=== PATIENT | male | born 1970 | race Caucasian/White ===

== ENCOUNTER → 2020-03-01 | Outpatient (CLI) | payer OTHER ==
--- NOTE | 2020-03-01 15:09 | CONS ---
CONSULTATION DATE OF SERVICE: 03/01/2020 A 49-year-old gentleman evaluated in the Sleep Center for possible obstructive sleep apnea-hypopnea syndrome. HISTORY OF PRESENT ILLNESS/SLEEP-WAKE EVALUATION: Patient's usual sleep schedule from 11 p.m. to 8:30 a.m. Usually no problems with falling asleep. No TV in bedroom. The patient sleeps by himself. According to his family, he has extremely loud snoring and witnessed episodes of stopped breathing during the sleep. His mother counted up to 40 seconds when he stops breathing during the sleep. During the day, he usually does not take naps. [place] Sleepiness Scale is 3. At night, he sleeps actually reclining. PAST MEDICAL HISTORY: Positive for hypertension, diabetes, or stroke, happened with blurry vision and memory problems. Now this function normalized. PAST SURGICAL HISTORY: None. MEDICATIONS: Metoprolol, atorvastatin, baby aspirin, metformin, Plavix and . SOCIAL HISTORY: Negative for smoking or using alcohol. FAMILY HISTORY: Positive for pneumonia, emphysema and heart problems by his grandmother. Thyroid problem, headaches by his mother. REVIEW OF SYSTEMS: Sometimes tiredness during the day. PHYSICAL EXAM: gentleman without distress, BP 134/80, HR 64, RR 16, height 6, 0, weight 227, BMI 30.7, temperature 99.1, oxygen saturation at room air 98%. OROPHARYNX: Extremely low position of soft palate. Mallampati 4. Neck is wide, 17 - 1/2 inches in circumference. LUNGS: Clear to percussion and to auscultation. Good air exchange. No wheezing or rhonchi. HEART: S1, S2 regular. No murmurs, gallops, or rubs. ABDOMEN: Soft and nontender. Bowel sounds are present. No organomegaly appreciated. EXTREMITIES: No clubbing or cyanosis. SAMPLE MAKER ORIGINAL: Awake, alert, and oriented X3. Cranial nerves 2 to 7 intact. There is no fasciculation or atrophy. noted. No focal deficits observed. IMPRESSION: 1. Loud snoring, witnessed episodes of stopped breathing during sleep, extremely low position of soft palate, wide neck, obstructive sleep apnea-hypopnea syndrome. 2. Hypertension. 3. History of stroke. 4. Diabetes mellitus. PLAN: 1. Polysomnography for evaluation of patient's breathing during sleep. 2. CPAP/BiPAP titration if sleep study confirms obstructive sleep apnea-hypopnea syndrome. 3. Preferable position during sleep on the side. 4. No driving if patient feels any sleepiness. 5. I will see patient for follow up visit to explain results of testing and following plan. 6. Mild obesity BMI 30.7. Thank you very much for allowing me to participate in management of your patient. Sincerely, Darrick Gauthier MD, PhD, FAASM Diplomat of [employer] [place] Board of [employer] Medicine Religious Educator of [facility] [place] MMODL / IJN: [id number] /
== END | disposition home or self-care (01) ==
LOC: SLEEP 13:31
PROVIDERS: ATTEND Internal Medicine
DX: G47.33 Obstructive sleep apnea (adult) (pediatric) (principal); I10 Essential (primary) hypertension; E11.9 Type 2 diabetes mellitus without complications; Z86.73 Personal history of transient ischemic attack (TIA), and cerebral infarction without residual deficits
CPT/HCPCS: 99211

== ENCOUNTER → 2020-07-12 | Outpatient (CLI) | payer OTHER ==
--- NOTE | 2020-07-13 02:58 | SFUN ---
SLEEP CENTER FOLLOW UP NOTE DATE OF SERVICE: 07/12/2020 This 49-year-old gentleman who has been followed in Sleep Center for treatment of obstructive sleep apnea-hypopnea syndrome. Recently patient had polysomnogram which showed extremely severe obstructive sleep apnea-hypopnea syndrome with apnea-hypopnea index 77.5 and severe oxygen desaturation to 48%. Subsequently, patient had CPAP/BiPAP titration and received his BiPAP machine. This is his first visit after he started to use BiPAP equipment. The patient is using equipment every night and feels better while he is using BiPAP. Sleeps in bed and feels better during the day. [place] Sleepiness Scale today is zero. I checked his BiPAP unit. BiPAP pressure is 20/16 cm of water. Usage is 30 out of 30 nights and 20 out of 30 nights for more than 4 hours with average usage 5.9 hours per night. Leak is 24 L/minute. Apnea-hypopnea index 23.2, and apnea index is 16.9. MEDICATIONS: Metoprolol, atorvastatin, metformin, aspirin, Plavix. PHYSICAL EXAMINATION: GENERAL: Patient in no distress. VITAL SIGNS: BP 137/87, HR 78, RR 15, weight 234, temperature 97.3, oxygen saturation normal at 98%. HEENT: PERRLA, EOMI. Evaluation of oropharynx small oropharynx. NECK: Supple, no JVD. Thyroid is not palpable. LUNGS: Clear to percussion and to auscultation. Good air exchange. No wheezing or rhonchi. HEART: S1, S2 regular. No murmurs, gallops, or rubs. ABDOMEN: Soft and nontender. Bowel sounds are present. No organomegaly appreciated. EXTREMITIES: No clubbing or cyanosis. PRESCHOOL SUBSTITUTE TEACHER: Awake, alert, and oriented X3. Cranial nerves 2 to 7 intact. There is no fasciculation or atrophy. noted. No focal deficits observed. IMPRESSION: 1. Extremely severe obstructive sleep apnea-hypopnea syndrome; apnea-hypopnea index 77.5 with extremely severe oxygen desaturation to 48%, improved on BiPAP. The patient demonstrated good compliance with treatment, benefitting from treatment. Apnea-hypopnea index reading from the machine still above normal range. 2. History of stroke. 3. Hypertension. 4. Diabetes mellitus. PLAN: 1. I increased BiPAP pressure to 22/18 cm of water. 2. Patient will continue to use PAP equipment every night for the whole night. 3. Sleep hygiene with regular time in bed for at least 7-1/2 to 8 hours. 4. Precautions related to driving. No driving if feeling sleepiness. 5. I will maintain all necessary prescription for PAP supplies including mask, tube, filters. 6. Watching weight. 7. No driving if feeling sleepiness. 8. Follow-up visit in one month or earlier if patient has any discomfort related to the pressure. The patient was explained that if he had any discomfort related to the pressure he should contact office immediately. Thank you very much for allowing me to participate in management of your patient. Sincerely, Darrick Gauthier MD, PhD, FAASM Diplomat of [employer] Specialties [employer] Board of Internal Medicine Offset Plate Maker of [facility] [place] JOHN / KEILAN: [id number] /
== END | disposition home or self-care (01) ==
LOC: SLEEP 15:44
PROVIDERS: ATTEND Internal Medicine
DX: G47.33 Obstructive sleep apnea (adult) (pediatric) (principal); Z86.73 Personal history of transient ischemic attack (TIA), and cerebral infarction without residual deficits; I10 Essential (primary) hypertension; E11.9 Type 2 diabetes mellitus without complications; Z99.89 Dependence on other enabling machines and devices; Z79.82 Long term (current) use of aspirin; Z79.84 Long term (current) use of oral hypoglycemic drugs; Z79.899 Other long term (current) drug therapy

== ENCOUNTER → 2020-08-29 | Outpatient (CLI) | payer OTHER ==
--- NOTE | 2020-08-29 20:59 | SFUN ---
SLEEP CENTER FOLLOW UP NOTE DATE OF SERVICE: 08/29/2020 This is a 49-year-old gentleman who has been followed in Sleep Center for treatment of obstructive sleep apnea-hypopnea syndrome. During his previous visit in July 2020, his apnea-hypopnea index was in the high range; reading from the machine was 23.2. I increased pressure in his BiPAP unit to 22/18 cm of water. Patient continues to use his CPAP equipment every night but feels that the leak is more than before. [place] Sleepiness Scale today is 8. I checked the patient's BiPAP unit. Pressure is 22/18. Usage is 30/30 nights, and 20/30 nights for more than 4 hours. Average usage 5.5 hours per night. Very high leak at 72 L/minute. Apnea-hypopnea index is 14.6, which is less than during his previous visit with about 10 events per hour. MEDICATIONS: 1. Aspirin 81 mg once a day. 2. Metoprolol 100 mg once a day. 3. Atorvastatin 40 mg once a day. 4. Metformin 500 mg twice a day. 5. Entresto 97-103 mg twice a day. 6. Plavix 75 mg once a day. 7. Victoza 0.6 mg once a day. PHYSICAL EXAMINATION: GENERAL: A pleasant patient in no distress. VITAL SIGNS: BP 136/91, HR 74, RR 15, height 6 feet, weight 236.6 pounds, BMI 32, temperature 97.7, oxygen saturation at room air 98%. HEENT: PERRLA, EOMI. Evaluation of oropharynx showed tongue protrudes midline. Small oropharynx. NECK: Supple. No JVD. Thyroid is not palpable. LUNGS: Clear to percussion and to auscultation. Good air exchange. No wheezing or rhonchi. HEART: S1, S2 regular. No murmurs, gallops or rubs. ABDOMEN: Soft and nontender. Bowel sounds are present. No organomegaly appreciated. EXTREMITIES: No clubbing or cyanosis. TELEPHONE ORDER CLERK: Awake, alert, and oriented X3. Cranial nerves 2 to 7 intact. There is no fasciculation or atrophy. noted. No focal deficits observed. IMPRESSION: 1. Obstructive sleep apnea-hypopnea syndrome. Patient demonstrated good compliance with treatment. Respiration improved on BiPAP compared to the previous visit, but still above the best range. 2. History of stroke. 3. Hypertension. 4. Diabetes mellitus. PLAN: 1. Patient will continue to use BiPAP equipment with the same pressure. 2. We fit the patient with a different style of full-face mask with a goal to decrease leak and consequently improve his respiration. 3. Watching weight. 4. No driving if feeling any sleepiness. 5. Follow-up visit in 3 months. Thank you very much for allowing me to participate in the management of your patient. Sincerely, Darrick Gauthier MD, PhD, FAASM Diplomat of [employer] Board [employer] Medical Specialties English Board of Internal Medicine Cloth Sander of [facility] [place] MMODL / IJN: [id number] /
== END | disposition home or self-care (01) ==
LOC: SLEEP 16:20
PROVIDERS: ATTEND Internal Medicine
DX: G47.33 Obstructive sleep apnea (adult) (pediatric) (principal); Z86.73 Personal history of transient ischemic attack (TIA), and cerebral infarction without residual deficits; I10 Essential (primary) hypertension; E11.9 Type 2 diabetes mellitus without complications; Z79.82 Long term (current) use of aspirin; Z79.899 Other long term (current) drug therapy; Z99.89 Dependence on other enabling machines and devices

== ENCOUNTER → 2020-09-18 | Outpatient (CLI) | payer OTHER ==
[2020-09-18 15:51] LABS: Basophils # (A) 0.05 X 10*3/uL (0.00-0.10); Basophils % (A) 0.6 %; Eosinophils # (A) 0.15 X 10*3/uL (0.04-0.35); Eosinophils % (A) 1.8 %; HCT 45.3 % (39.6-50.0); HGB 14.6 g/dL (13.0-17.0); Lymphocytes % (A) 20.7 %; MCHC 32.2 g/dL (32.0-37.0); MCV 93.2 fL (80.0-97.0); Mean Platelet Volume 10.8 fL (9.5-12.2); Monocytes % (A) 6.1 %; Neutrophils # (A) 5.76 X 10*3/uL (1.80-7.70); Neutrophils % (A) 70.1 %; Platelet Count 260 X 10*3/uL (140-440); RBC 4.86 X 10*6/uL (4.40-5.60); WBC 8.22 X 10*3/uL (4.50-10.00)
[2020-09-18 15:56] LABS: Albumin 4.8 g/dL (3.80-4.90); Albumin/Globulin Ratio 2.82 (1.60-3.17); Anion Gap 6.7 mmol/L (4.00-12.00); Calcium 9.5 mg/dL (8.7-10.3); Carbon Dioxide 28.3 mmol/L (21.6-31.8); Chol/HDL Ratio 5.42; Globulin 1.7 g/dL (1.6-3.3); Potassium 4.4 mmol/L (3.5-5.5); Total Bilirubin 1.7 mg/dL (0.2-1.2); Total Protein 6.5 g/dL (6.2-8.2)
[2020-09-18 17:11] LABS: Hemoglobin A1C 7.8 % (4.0-6.0)
== END | disposition home or self-care (01) ==
LOC: LABWHC1 08:35
PROVIDERS: ATTEND Internal Medicine
DX: E78.5 Hyperlipidemia, unspecified (principal); E11.9 Type 2 diabetes mellitus without complications; E66.9 Obesity, unspecified; I50.9 Heart failure, unspecified
CPT/HCPCS: 36415; 80053; 80061; 83036; 83721; 85025

== ENCOUNTER → 2020-12-27 | Outpatient (CLI) | payer OTHER ==
--- NOTE | 2020-12-28 04:15 | SFUN ---
SLEEP CENTER FOLLOW UP NOTE DATE OF SERVICE: 12/27/2020 50-year-old gentleman has been followed in Sleep Center for treatment of obstructive sleep apnea-hypopnea syndrome. The patient continues to use BiPAP equipment every night for the whole night and according to him and family, he sleeps pretty well with the machine, feel okay during the day. [place] Sleepiness Scale is 0. During previous visit, it was documented very high leak 72 L/minute, and we changed the type of the patient mask to a different one, fullface mask. He feels well with the new mask. I checked his BiPAP unit. Pressure is 20-18 cm of water. Usage is 29 out of 30 nights and 22 out of 30 nights for more than 4 hours. Leak at the present time, 28 L/minute. Apnea-hypopnea index 13.7, which includes central 1.4 times per hour. During previous visit, apnea-hypopnea index was 14.6. MEDICATIONS: Aspirin 81 mg once a day, metoprolol 100 mg once a day, rosuvastatin 20 mg once a day, metformin 500 mg twice a day and Entresto 97-103 mg twice a day, Plavix 75 mg once a day, Victoza 1.2 mg once a day. PHYSICAL EXAMINATION: GENERAL: Patient in no distress. BP 124/81, HR 71, RR 15, height 6 feet 1 inch, weight 237.0 pounds which is about the same as during last visit. BMI 31.3, temperature 97.9 oxygen saturation at room air 97%. HEENT: PERRLA, EOMI. Oropharynx small oropharyngeal air space. NECK: Supple, no JVD. Thyroid is not palpable. LUNGS: Clear to percussion and to auscultation. Good air exchange. No wheezing or rhonchi. HEART: S1, S2 regular. No murmurs, gallops, or rubs. ABDOMEN: Slightly obese. Soft and nontender. Bowel sounds are present. No organomegaly appreciated. EXTREMITIES: No clubbing or cyanosis. RIP AND GROOVE MACHINE OPERATOR: Awake, alert, and oriented X3. Cranial nerves 2 to 7 intact. There is no fasciculation or atrophy. noted. No focal deficits observed. IMPRESSION: 1. Extremely severe obstructive sleep apnea-hypopnea syndrome. Apnea-hypopnea index during diagnostic sleep study 77.5. The patient demonstrated great compliance with treatment benefitting from treatment. Apnea-hypopnea index improved after changing mask but still in mild range above normal. 2. History of stroke. 3. Hypertension. 4. Diabetes mellitus. PLAN: 1. I changed regimen on the BiPAP machine to automatic with maximal inspiratory pressure 23, minimal expiratory pressure 13, pressure support 4. 2. Sleep hygiene with regular time in bed for at least 7-1/2 to 8 hours. 3. Precautions related to driving. No driving if feeling sleepiness. 4. I will maintain all necessary prescription for PAP supplies including mask, tube, filters. 5. Watching weight. 6. Follow-up visit in 3-4 months or earlier if patient has any problems. Thank you very much for allowing me to participate in management of your patient. Sincerely, Darrick Gauthier MD, PhD, FAASM Diplomat of [employer] Board of Medical Specialties Polish Board of Internal Medicine Joint Special Operations of [facility] [place] MMODL / KEILAN: [id number] /
== END ==
LOC: SLEEP 13:19
PROVIDERS: ATTEND Internal Medicine
DX: G47.33 Obstructive sleep apnea (adult) (pediatric) (principal); I10 Essential (primary) hypertension; E11.9 Type 2 diabetes mellitus without complications; Z86.73 Personal history of transient ischemic attack (TIA), and cerebral infarction without residual deficits; Z79.84 Long term (current) use of oral hypoglycemic drugs; Z79.899 Other long term (current) drug therapy

== ENCOUNTER → 2021-05-02 | Outpatient (CLI) | payer OTHER ==
--- NOTE | 2021-05-02 21:21 | SFUN ---
SLEEP CENTER FOLLOW UP NOTE DATE OF SERVICE: 05/02/2021 50-year-old gentleman has been followed in Sleep Center for treatment of obstructive sleep apnea-hypopnea syndrome. The patient continues to use his BiPAP equipment every night according to patient and family. Sleeps well with the machine. During 2 previous visits, his apnea-hypopnea index was increased into 30.7 and last visit was 14.6 and it was documented very high leak 72 L/minute. During the last visit, I changed the pressure in the machine to maximal pressure 23, minimal expiratory pressure of 13 with a pressure support of 4. [place] Sleepiness Scale today is 2 only. I checked BiPAP unit. Maximal inspiratory pressure 23, minimal expiratory pressure 13, pressure support 4. Usage is 24/30 nights. Average 5.2 hours per night. Leak is 16 L/minute. Apnea-hypopnea index 8.1, which is still slightly above normal range, but significant improvement comparing with the previous visit. MEDICATIONS: Aspirin 81 mg once a day, metoprolol 100 mg once a day, metformin 1000 mg twice a day, 97-103 mg twice a day, Plavix 75 mg once a day, Victoza 1.2 mg once a day, Rosuvastatin 20 mg once a day. PHYSICAL EXAMINATION: GENERAL: Patient in no distress. BP 129/77, HR 70, RR 15, height 6 feet 1 inch, weight 230.6, body mass index 30.3. The patient lost 7 pounds since the previous visit. Temperature 96.8, oxygen saturation 100%. Oropharynx: Small oropharyngeal air space. NECK: Supple, no JVD. Thyroid is not palpable. LUNGS: Clear to percussion and to auscultation. Good air exchange. No wheezing or rhonchi. HEART: S1, S2 regular. No murmurs, gallops, or rubs. ABDOMEN: Soft and nontender. Bowel sounds are present. No organomegaly appreciated. EXTREMITIES: No clubbing or cyanosis. WINDOW UNIT AIR CONDITIONING MECHANIC: Awake, alert, and oriented X3. Cranial nerves 2 to 7 intact. There is no fasciculation or atrophy. noted. No focal deficits observed. IMPRESSION: 1. Severe obstructive sleep apnea-hypopnea syndrome. Original apnea-hypopnea index 77.5. The patient demonstrated borderline compliance with treatment benefitting from treatment, improvements of the patient respiration. A total apnea-hypopnea index 8.1, after pressure in the machine was adjusted during the last visit. During previous visit, apnea-hypopnea index was in the range of 14. 2. History of stroke. 3. Hypertension. 4. Diabetes mellitus. PLAN: 1. Patient will continue to use PAP equipment every night for the whole night. 2. Sleep hygiene with regular time in bed for at least 7-1/2 to 8 hours. 3. Precautions related to driving. No driving if feeling sleepiness. 4. I will maintain all necessary prescription for PAP supplies including mask, tube, filters. 5. Watching weight. 6. Follow-up visit in 6 months or earlier if patient has any problems. 7. If patient wakes up in the middle of the night, he should not take mask off, just disconnect the tube from the mask and then connect tube back after he will return to bed after the restroom. Darrick Gauthier MD, PhD, FAASM Diplomat of [place] Board of [employer] Specialties Sleep Medicine Board of [place] Board of Internal Medicine Skin Lap Bonder of [facility] [place] MMODL / KEILAN: [id number] /
== END | disposition home or self-care (01) ==
LOC: SLEEP 13:47
PROVIDERS: ATTEND Internal Medicine
DX: G47.33 Obstructive sleep apnea (adult) (pediatric) (principal); I10 Essential (primary) hypertension; E11.9 Type 2 diabetes mellitus without complications; Z86.73 Personal history of transient ischemic attack (TIA), and cerebral infarction without residual deficits

== ENCOUNTER → 2021-05-22 | Outpatient (CLI) | payer OTHER ==
--- NOTE | 2021-05-22 19:27 | US ---
EXAMINATION TYPE: US thyroid st tissue head/neck DATE OF EXAM: 05/22/2021 COMPARISON: NONE CLINICAL HISTORY: E04.1 Nontoxic single thyroid nodule. Family hx of thyroid cancer GLAND SIZE: Right Lobe: 4.9 x 1.5 x 2.3 cm Overall Parenchyma: homogenous Left Lobe: 4.9 x 1.7 x 1.6 cm Overall Parenchyma: homogeneous Isthmus Thickness: 0.4 cm NODULES RIGHT: # of nodules measured on right: 0 LEFT: # of nodules measured on left: 0 ISTHMUS: # of nodules measured in the isthmus: 0 Bilateral neck scanned, no evidence of lymphadenopathy. Fairly homogeneous normal-size thyroid gland without worrisome nodule. IMPRESSION: As above.
== END | disposition home or self-care (01) ==
LOC: RADUSWWP 16:53
PROVIDERS: ATTEND Internal Medicine Hospice and Palliative Medicine
DX: E04.1 Nontoxic single thyroid nodule (principal)
CPT/HCPCS: 76536

== ENCOUNTER → 2021-08-01 | Outpatient (CLI) | payer OTHER ==
[2021-08-01 22:24] LABS: Chol/HDL Ratio 3.85 Ratio; LDL Cholesterol,Calculated 29.9 mg/dL (0.0-131.0)
== END | disposition home or self-care (01) ==
LOC: LABWHC1 11:43
PROVIDERS: ATTEND Internal Medicine
DX: I25.10 Atherosclerotic heart disease of native coronary artery without angina pectoris (principal); I11.9 Hypertensive heart disease without heart failure; E78.5 Hyperlipidemia, unspecified; Q21.1 Atrial septal defect; E11.9 Type 2 diabetes mellitus without complications; Z98.61 Coronary angioplasty status; Z86.79 Personal history of other diseases of the circulatory system
CPT/HCPCS: 36415; 80061

== ENCOUNTER → 2021-10-30 | Outpatient (CLI) | payer OTHER ==
--- NOTE | 2021-10-30 18:24 | SFUN ---
SLEEP CENTER FOLLOW UP NOTE DATE OF SERVICE: 10/30/2021. 51-year-old gentleman has been followed in Sleep Center for treatment of obstructive sleep apnea-hypopnea syndrome. Patient continues to use his BiPAP equipment every night, getting his supplies in time. During the previous visit, his apnea-hypopnea index was increased secondary to leak. Presently no complaints on any leak. I checked his BiPAP unit. Maximal inspiratory pressure 23, minimal expiratory pressure 13, average pressure 22/18. Usage is 30/30 nights and 20/30 nights more than 4 hours, average 7 hours per night. Leak is 34 L/minute which is significant improvement comparing with the previous visit, apnea-hypopnea index is 5.0, which is on the border to normal and showed improvements, previous apnea-hypopnea index was 8.1. MEDICATIONS: Aspirin 81 mg once a day, metoprolol 100 mg once a day, metformin 1000 mg twice a day, Plavix 75 mg once a day, Victoza 1.2 mg once a day also, lovastatin 20 mg once a day. PHYSICAL EXAMINATION: GENERAL: Patient in no distress. BP 115/72, HR 60, RR 16 height 6 feet 1 inch, weight 232.2 pounds, temperature 98.0. Oxygen saturation at room air 91%. Oropharynx: Small oropharyngeal air space. NECK: Supple, no JVD. Thyroid is not palpable. LUNGS: Clear to percussion and to auscultation. Good air exchange. No wheezing or rhonchi. HEART: S1, S2 regular. No murmurs, gallops, or rubs. ABDOMEN: Soft and nontender. Bowel sounds are present. No organomegaly appreciated. EXTREMITIES: No clubbing or cyanosis. ART LIBRARIAN: Awake, alert, and oriented X3. Cranial nerves 2 to 7 intact. There is no fasciculation or atrophy. noted. No focal deficits observed. IMPRESSION: 1. Severe obstructive sleep apnea-hypopnea syndrome. Original apnea-hypopnea index 77.5. The patient demonstrated great compliance with treatment. The patient's respiration practically normalized, presently Apnea-hypopnea index 5.0 after corrections which was done on the several previous visits. 2. History of stroke. 3. Hypertension. 4. Diabetes mellitus. PLAN: 1. Patient will continue to use PAP equipment every night for the whole night. 2. Sleep hygiene with regular time in bed for at least 7-1/2 to 8 hours. 3. Precautions related to driving. No driving if feeling sleepiness. 4. I will maintain all necessary prescription for PAP supplies including mask, tube, filters. 5. Watching weight. 6. Follow-up visit in 6 months or earlier if patient has any problems. Thank you very much for allowing me to participate in management of your patient. Sincerely, Darrick Gauthier MD, PhD, FAASM Diplomat of [place] [employer] Specialties Sleep Medicine Board of [place] Board of Internal Medicine Bobbin Handler of [facility] [place] MMODL / KEILAN: [id number] /
== END | disposition home or self-care (01) ==
LOC: SLEEP 13:08
PROVIDERS: ATTEND Internal Medicine
DX: G47.33 Obstructive sleep apnea (adult) (pediatric) (principal); I10 Essential (primary) hypertension; E11.9 Type 2 diabetes mellitus without complications; Z86.73 Personal history of transient ischemic attack (TIA), and cerebral infarction without residual deficits

== ENCOUNTER → 2022-05-14 | Outpatient (CLI) | payer OTHER ==
--- NOTE | 2022-05-14 12:35 | P.PN ---
Subjective DATE: 05/14/2022 FOLLOW UP VISIT. Patient with obstructive sleep apnea hypopnea syndrome return to sleep center for follow-up visit. Information from previous visit have been reviewed. Patient is using PAP equipment every night for the whole night, getting PAP supplies in time. The patient does not have significant problems with the mask, PAP unit and humidification. [place] sleepiness scale is 0, which is perfect. I checked information from PAP unit. PAP unit pressure maximal inspiratory pressure 23, minimal expiratory pressure 13, average pressure 20 2. 6/18 0.6 cm H2O. Usage is 90 % for more then 4 hours, average 7.1 hours per night. Leak is 7 l/m, which is in acceptable range. Apnea Hypopnea Index is increased to 10.9, during previous visit it was 5.0, on the visit before that it was 8.1. MEDICATIONS:1. Aspirin 81 mg once a day 2. Metoprolol 100 mg once a day 3. Metformin 1000 mg twice a day 4. Plavix 75 mg once a day 5. Rosuvastatin 20 mg once a day 6. Fenofibrate 14 mg once a day During physical exam: GENERAL: A pleasant patient without any distress. VITAL SIGNS: BP 153/90, HR 67, RR 14 , weight 237.2, temperature 97.2, oxygen saturation at room air 98 % . HEENT: PERRLA, EOMI. . NECK: Supple. No JVD. LUNGS: Clear to percussion and to auscultation. Good air exchange. No wheezing or rhonchi. HEART: S1, S2 regular. ABDOMEN: Soft and nontender. Slightly obese EXTREMITIES: No clubbing or cyanosis. COSMETIC CONSULTANT: Awake, alert, and oriented x3. No focal deficit. Impressions: 1. Severe obstructive sleep apnea hypopnea syndrome, apnea-hypopnea index during diagnostic sleep study 77.5. Patient demonstrated great compliance with treatment, benefiting from treatment. Apnea-hypopnea index slightly increased. 2. History of stroke. 3. Hypertension. 4. Diabetes mellitus. Plan: 1. Continue using PAP equipment every night for the whole night. I changed pressure to maximal inspiratory pressure 24 cm of water. 2. To change air filter at least 1-2 times per month. 3. PAP unit should stay lower then position of the head. 4. Advised patient to remove all remaining water from humidifier canister daily and make it dry after each usage. Refill canister with fresh distilled water before each usage. 5. Sleep hygiene with regular time in bed for at least 8 hours. 6. Precautions related to driving. No driving if feel any sleepiness. 7. I will maintain prescription for PAP supplies including mask, tube, filters. 8. Follow up visit in 6 months or earlier if patient has any problems. 9. Watching weight. Thank you very much for allowing me to participate in the management of your patient. Darrick Gauthier MD, PhD, FAASM. Diplomat of [place] [employer] Medicine, Sleep Medicine Board by [place] Board of [employer] Medicine It Security Architect of [facility] [place]
== END ==
LOC: SLEEP 11:40
PROVIDERS: ATTEND Internal Medicine
DX: G47.33 Obstructive sleep apnea (adult) (pediatric) (principal); E66.9 Obesity, unspecified; Z86.73 Personal history of transient ischemic attack (TIA), and cerebral infarction without residual deficits; I10 Essential (primary) hypertension; E11.9 Type 2 diabetes mellitus without complications; Z99.89 Dependence on other enabling machines and devices
CPT/HCPCS: 99212

== ENCOUNTER → 2022-05-27 | Outpatient (CLI) | payer OTHER ==
[2022-05-27 15:54] LABS: Chol/HDL Ratio 5.15 Ratio; LDL Cholesterol,Calculated 62.8 mg/dL (0.0-131.0)
== END | disposition home or self-care (01) ==
LOC: LABWHC1 10:26
PROVIDERS: ATTEND Internal Medicine Cardiovascular Disease
DX: I11.9 Hypertensive heart disease without heart failure (principal); I25.10 Atherosclerotic heart disease of native coronary artery without angina pectoris; E78.5 Hyperlipidemia, unspecified; Z86.73 Personal history of transient ischemic attack (TIA), and cerebral infarction without residual deficits; Z98.61 Coronary angioplasty status; Z86.79 Personal history of other diseases of the circulatory system
CPT/HCPCS: 36415; 80061

== ENCOUNTER → 2022-11-26 | Outpatient (CLI) | payer OTHER ==
--- NOTE | 2022-11-26 11:13 | P.PN ---
Subjective DATE: 11/26/2022 FOLLOW UP VISIT. Patient with obstructive sleep apnea hypopnea syndrome return to sleep center for follow-up visit. Information from previous visit have been reviewed. Patient is using PAP equipment every night for the whole night, getting PAP supplies in time. The patient does not have significant problems with the mask, PAP unit and humidification. [place] sleepiness scale is 0, which is perfect. I checked information from PAP unit and explaining to the patient in details. BPAP unit pressure is maximal inspiratory pressure 24, minimal expiratory pressure 13, pressure-support 4 cm H2O. Usage is 100% and 90 % for more then 4 hours, average 6.5 hours per night. Leak is high 50.0 l/m average for the last months, after changing mask to the new one recently leak reduced to normal . Apnea Hypopnea Index is 2.7 for last night and 4.4 for the last months, which is normal. MEDICATIONS:1. Aspirin 81 mg once a day 2. Metoprolol 100 mg once a day 3. Metformin 1000 mg twice a day 4. Plavix 75 mg once a day 5. Fenofibrate 14 mg once a day 6. Rosuvastatin 20 mg once a day 7 Entresto twice a day During physical exam: GENERAL: A pleasant patient without any distress. VITAL SIGNS: BP 113/72, HR 62, RR 12 , weight 226, temperature 98.0, oxygen saturation at room air 97 % . HEENT: PERRLA, EOMI . NECK: Supple. No JVD. LUNGS: Clear to percussion and to auscultation. Good air exchange. No wheezing or rhonchi. HEART: S1, S2 regular. ABDOMEN: Soft and nontender.[] EXTREMITIES: No clubbing or cyanosis. DEGREASER OPERATOR: Awake, alert, and oriented x3. No focal deficit. Impressions: 1. Obstructive sleep apnea-hypopnea syndrome. Patient demonstrated great compliance with treatment, benefiting from treatment. Normal apnea-hypopnea index on BiPAP after pressure was changing the previous visit. 2. History of obesity, patient lost 11 pounds, presently body mass index reduced to 29.8. 3. Diabetes mellitus, recent hemoglobin A1c according to patient 6.0. 4. Hypertension. 5. History of stroke. Plan: 1. Continue using PAP equipment every night for the whole night. 2. To change air filter at least 1-2 times per month. 3. PAP unit should stay lower then position of the head. 4. Advised patient to remove all remaining water from humidifier canister daily and make it dry after each usage. Refill canister with fresh distilled water before each usage. 5. Sleep hygiene with regular time in bed for at least 8 hours. 6. Precautions related to driving. No driving if feel any sleepiness. 7. I will maintain prescription for PAP supplies including mask, tube, filters. 8. Watching weight. 9. Follow up visit in 6 months or earlier if patient has any problems. Thank you very much for allowing me to participate in the management of your patient. Darrick Gauthier MD, PhD, FAASM. Diplomat of [place] [employer], Sleep Medicine Board by [place] [employer] Teacher of [facility] [place]
== END ==
LOC: SLEEP 10:42
PROVIDERS: ATTEND Internal Medicine
DX: G47.33 Obstructive sleep apnea (adult) (pediatric) (principal); E11.9 Type 2 diabetes mellitus without complications; E66.9 Obesity, unspecified; I10 Essential (primary) hypertension; Z79.84 Long term (current) use of oral hypoglycemic drugs; Z79.899 Other long term (current) drug therapy; Z86.73 Personal history of transient ischemic attack (TIA), and cerebral infarction without residual deficits; Z99.89 Dependence on other enabling machines and devices; Z68.29 Body mass index [BMI] 29.0-29.9, adult; Z79.82 Long term (current) use of aspirin
CPT/HCPCS: 99212

== ENCOUNTER → 2023-04-15 | Outpatient (CLI) | payer OTHER ==
--- NOTE | 2023-04-15 09:39 | US ---
EXAMINATION TYPE: US kidneys/renal and bladder DATE OF EXAM: 04/15/2023 COMPARISON: NONE CLINICAL INDICATION: Male, 52 years old with history of N18.1 CHRONIC KIDNEY DISEASE, STAGE 1; EXAM MEASUREMENTS: Right Kidney: 12.4 x 5.7 x 6.0 cm Left Kidney: 12.6 x 5.7 x 4.8 cm Right Kidney: Upper hydronephrosis with shadowing stone noted at the hilum measuring 1.7 cm; addition al shadowing stone with twinkle artifact noted laterally measuring 1.2 cm Left Kidney: Appears wnl Bladder: 134 ml; questionable small amount of debris noted Bilateral Jets seen: yes Patient was unable to void. IMPRESSION: 1. Nonobstructing right renal stones. 2. Moderate hydronephrosis with 1.7 cm renal pelvis stone. 3. Possible debris within the urinary bladder.
[2023-04-15 16:38] LABS: HCT 39.5 % (39.6-50.0); HGB 12.9 d/dL (13.0-17.0); MCH 29.9 pg (27.0-32.0); MCHC 32.7 d/dL (32.0-37.0); MCV 91.4 FL (80.0-97.0); Mean Platelet Volume 10.6 FL (9.5-12.2); NRBC Per 100 WBC 0 X 10*3/uL (0.00-0.01); Platelet Count 317 X 10*3/uL (140-440); RBC 4.32 X 10*6/uL (4.40-5.60); RDW 12.9 % (11.5-14.5); WBC 6.27 X 10*3/uL (4.50-10.00)
[2023-04-15 18:17] LABS: Appearance,Urine Turbid (Clear); Bacteria,Urine 1+ (None Seen); Bilirubin,Urine Negative (Negative); Blood,Urine Large (Negative); Color,Urine Yellow (Yellow); Ketones,Urine Negative (Negative); Nitrite,Urine Negative (Negative); PH, Urine 5.5; Specific Gravity,Urine 1.022 (1.001-1.030)
[2023-04-15 18:27] LABS: % Iron Saturation 16.31 (15.00-50.00); ALT 18 U/L (10-49); AST 16 U/L (14-35); Albumin 4.6 d/dL (3.8-4.9); Albumin/Globulin Ratio 2.19 Ratio (1.60-3.17); Alkaline Phosphatase 56 U/L (41-126); BUN/Creat Ratio 13.17 Ratio (12.00-20.00); Blood Urea Nitrogen 15.8 mg/dL (9.0-27.0); Calcium 10.2 mg/dL (8.7-10.3); Carbon Dioxide 25.7 mmol/L (21.6-31.8); Chloride 104 mmol/L (96-109); Globulin 2.1 d/dL (1.6-3.3); Glucose 153 mg/dL (70-110); Iron 68 UG/DL (65-175); Magnesium 1.4 mg/dL (1.5-2.4); Phosphorus 2.6 mg/dL (2.4-5.1); Potassium 3.7 mmol/L (3.5-5.5); Sodium 141 mmol/L (135-145); Total Bilirubin 0.5 mg/dL (0.3-1.2); Total Iron Binding Capacity 417 UG/DL (228-460); Total Protein 6.7 d/dL (6.2-8.2); Uric Acid 3.7 mg/dL (3.7-8.7)
== END | disposition home or self-care (01) ==
LOC: RADUSWWP 08:59
PROVIDERS: ATTEND Internal Medicine
DX: N18.1 Chronic kidney disease, stage 1 (principal); N13.2 Hydronephrosis with renal and ureteral calculous obstruction
CPT/HCPCS: 76770; 80053; 81001; 82043; 82306; 82570; 82728; 83540; 83550; 83735; 83970; 84100; 84550; 85027

== ENCOUNTER → 2023-06-01 | Outpatient (CLI) | payer OTHER ==
[2023-06-01 16:33] LABS: BUN/Creat Ratio 15.55 Ratio (12.00-20.00); Blood Urea Nitrogen 17.1 mg/dL (9.0-27.0); Calcium 10.1 mg/dL (8.7-10.3); Carbon Dioxide 23.3 mmol/L (21.6-31.8); Chloride 101 mmol/L (96-109); Glucose 131 mg/dL (70-110); Potassium 4.8 mmol/L (3.5-5.5); Sodium 140 mmol/L (135-145)
[2023-06-01 17:36] LABS: Basophils # (M) 0 X 10*3/uL (0.00-0.10); HCT 42.8 % (39.6-50.0); HGB 13.9 d/dL (13.0-17.0); MCHC 32.5 d/dL (32.0-37.0); MCV 92.4 FL (80.0-97.0); NRBC Per 100 WBC 0 X 10*3/uL (0.00-0.01); Neutrophils % (M) 74 %; Platelet Count 302 X 10*3/uL (140-440); RBC 4.63 X 10*6/uL (4.40-5.60); WBC 7.25 X 10*3/uL (4.50-10.00)
[2023-06-01 17:37] LABS: Eosinophils # (M) 0.36 X 10*3/uL (0.04-0.35); Lymphocytes # (M) 1.38 X 10*3/uL (0.90-5.00); Monocytes # (M) 0.14 X 10*3/uL (0.20-1.00); Neutrophils # (M) 5.37 X 10*3/uL (1.80-7.70); Nucleated Red Blood Cells 2 /100 WBCS; RBC Morphology Normal (Normal)
== END | disposition home or self-care (01) ==
LOC: LABPAT 10:00
PROVIDERS: ATTEND Urology
DX: Z01.812 Encounter for preprocedural laboratory examination (principal); N20.1 Calculus of ureter; R31.29 Other microscopic hematuria
CPT/HCPCS: 80048; 85025; 87086

== ENCOUNTER 2023-06-09 10:36 | Day surgery (SDC) | payer OTHER ==
--- NOTE | 2023-06-05 08:04 | P.HPIHPCON ---
History of Present Illness H&P Date: 06/05/23 Chief Complaint: Right-sided renal stone This is a 52-year-old male with history of a 1.5 cm right-sided renal pelvis stone causing hydronephrosis, additional lower pole right-sided renal stone greater than 1 cm. Option of PCNL versus stage ureteroscopy was discussed with him in details. He agreed to proceed with a right-sided ureteroscopy with holmium laser. Risk which includes but not limited to bleeding, infection, injury to the ureter was discussed. Aware given that the stone burden is greater than 2 cm this will be a staged procedure Consent for Procedure: I have explained the operation/procedure to the patient, including the risks, benefits, side effects, alternative therapies (including not receiving the proposed treatment or service), the likelihood of the patient achieving his/her goals, and potential recuperation problems for the procedure/sedation/analgesia, as well as any blood products, if indicated. I also explained to the patient the risks, benefits and side effects of the alternatives, as well as the risks related to not receiving the proposed procedure, care, treatment, or services. Surgical - Exam - General no distress, no pain - Eyes normal ocular movement, no pale - ENT normal nares, normal mucosa - Respiratory normal expansion, normal respiratory effort - Abdomen Abdomen: soft, non tender Assessment and Plan Assessment: OR for right-sided ureteroscopy, holmium laser lithotripsy, stone basketing and stent insertion
[~2023-06-09 10:36] MED LIST: CIPROFLOXACIN/DEXTROSE PMX 400 MG in DEXTROSE/WATER 1 200ML.BAG IVPB PRN
[2023-06-09] MEDS ORDERED: LIDOCAINE 1% (10MG/ML) FOR IV START INTRADERMA PRN (10:46)
[2023-06-09] MEDS ORDERED: HYDROmorphone 0.5 MG/0.5 ML SYRINGE IVP PRN (10:46)
[2023-06-09] MEDS ORDERED: ONDANSETRON 4 MG/2 ML VIAL IVP ONE (10:46)
[2023-06-09] MEDS ORDERED: MIDAZOLAM 2 MG/2 ML VIAL IV PRN (10:46)
[2023-06-09] MEDS ORDERED: DEXAMETHASONE SOD PHOSPHATE 4 MG/ML 1 ML VIAL IV ONE (10:46)
[2023-06-09] MEDS ORDERED: LACTATED RINGERS 1,000 ML IV SCH (10:46)
--- NOTE | 2023-06-09 11:05 | XR ---
EXAMINATION TYPE: XR KUB DATE OF EXAM: 06/09/2023 COMPARISON: CT 05/11/2023 INDICATION: Right renal stones TECHNIQUE: Single view abdomen frontal projection FINDINGS: Nonspecific bowel gas is present within small bowel loops as well as the colon. Psoas margins are normal. No organomegaly is present. There are 2 calcifications overlying the mid right kidney measuring 0.9 and 1.0 cm in size. Present p reviously IMPRESSION: 1. Calcifications right mid kidney correlate with prior CT exam findings. 2. Nonspecific bowel gas pattern
[2023-06-09 11:17] LABS: Glucose,Whole Blood 134 mg/dL (70-110)
[2023-06-09] MEDS ORDERED: LIDOCAINE 1% INJ 10MG/ML (20 ML MDV) ONE (11:43)
[2023-06-09] MEDS ORDERED: MIDAZOLAM 2 MG/2 ML VIAL ONE (11:43)
[2023-06-09] MEDS ORDERED: SUCCINYLCHOLINE CHLORIDE 200 MG/10 ML VIAL IV ONE (11:43)
[2023-06-09] MEDS ORDERED: ETOMIDATE 2 MG/ML 10 ML VIAL ONE (11:43)
[2023-06-09] MEDS ORDERED: GLYCOPYRROLATE 0.2 MG/ML 2 ML VIAL ONE (11:43)
[2023-06-09] MEDS ORDERED: fentaNYL (PF) 50 MCG/ML 2 ML AMP ONE (11:43)
[2023-06-09] MEDS ORDERED: PHENYLEPHRINE-0.9% NACL SYG 1,000 MCG/10 ML SYRINGE ONE (11:43)
[2023-06-09] MEDS ORDERED: ROCURONIUM 10 MG/ML (5 ML VIAL) IV ONE (11:43)
[2023-06-09] MEDS ORDERED: NEOSTIGMINE 1 MG/ML 10 ML VIAL ONE (11:43)
--- NOTE | 2023-06-09 13:06 | FL ---
Fluoroscopy INDICATION: Pain FINDINGS: Fluoroscopy time: 14.1 seconds. Total dose area product (DAP) in uGy*m?, mGy*cm? (or similar): 0.26699 Images obtained: 5. IMPRESSION: 1. Documentation of fluoroscopy.
--- NOTE | 2023-06-09 13:07 | P.OP ---
Date of Procedure: 06/09/23 Preoperative Diagnosis: Right ureteral and renal stone Postoperative Diagnosis: same Procedure(s) Performed: Cystoscopy, right ureteroscopy, holmium laser lithotripsy, stone basketing and stent insertion Implants: 6-Tajik by 26 cm stent in the right ureter Anesthesia: JOYCE Surgeon: Ander Black Estimated Blood Loss (ml): 5 Pathology: other (right renal stone) Condition: stable Disposition: PACU Indications for Procedure: This is a 52-year-old male with history of a 1.5 cm right-sided renal pelvis stone causing hydronephrosis, additional lower pole right-sided renal stone greater than 1 cm. Option of PCNL versus stage ureteroscopy was discussed with him in details. He agreed to proceed with a right-sided ureteroscopy with holmium laser. Risk which includes but not limited to bleeding, infection, injury to the ureter was discussed. Aware given that the stone burden is greater than 2 cm this will be a staged procedure Operative Findings: Large right-sided UPJ stone, additional right renal pelvic stone Description of Procedure: Patient brought to the operating room, general anesthesia was induced. He was prepped and draped in sterile fashion and placed in dorsal lithotomy position. Cystoscopy fitted with a 21-Tajik sheath was inserted per urethra, cystoscopy was performed which showed no abnormality within the bladder. Prostate was small nonobstructive. At this time the right ureteral orifice was intubated with a sensor wire. Next an 1113 Tajik access sheath was passed over the wire under fluoroscopy into the proximal ureter. Flexible ureteroscope was inserted through the access sheath, at this point a large stone was encountered in the ureter. Using the holmium laser the stone was dusted, and additional large stone seen in the renal pelvis was also dusted, repeat renoscopy showed no sizable stones or injury to the kidney, on fluoroscopy there is no radiopaque densities, sizable fragments were removed using the stone basket. Of note there was significant amount of dust which limited visualization. At this time pullback ureteroscopy was performed which showed no injury to the ureter or any ureteral stones, as the ureteroscope was withdrawn, a sensor wire was advanced through. Next a ureteral stent was passed over the wire, the proximal curl was visualized on fluoroscopy and the distal curl was visulaized using the cystoscope. The bladder was emptied at the end of the case. Patient tolerated procedure well was taken to recovery in stable condition, patient will follow- up in 2-3 weeks for second staged ureteroscopy with stent removal
[2023-06-09 13:23] VITALS: TEMP 98.1
[2023-06-09 13:30] LABS: Glucose,Whole Blood 168 mg/dL (70-110)
[2023-06-09] MEDS ORDERED: KETOROLAC 15 MG/ML 1 ML VIAL ONE (14:01)
[2023-06-09] MEDS ORDERED: KETOROLAC 15 MG/ML 1 ML VIAL IVP ONE (14:02)
[2023-06-09 14:09] VITALS: RESP 16
[2023-06-09 14:32] VITALS: BP 112/71; PULSE 67
== END 2023-06-09 14:41 | disposition home or self-care (01) ==
LOC: OR 10:36
PROVIDERS: ATTEND Urology
DX: N20.0 Calculus of kidney (principal); I25.2 Old myocardial infarction; I11.0 Hypertensive heart disease with heart failure; I50.9 Heart failure, unspecified; I63.9 Cerebral infarction, unspecified; E78.5 Hyperlipidemia, unspecified; E11.9 Type 2 diabetes mellitus without complications; G47.33 Obstructive sleep apnea (adult) (pediatric); Z95.5 Presence of coronary angioplasty implant and graft; Z79.02 Long term (current) use of antithrombotics/antiplatelets; Z79.84 Long term (current) use of oral hypoglycemic drugs; Z79.82 Long term (current) use of aspirin; Z79.899 Other long term (current) drug therapy; Z88.0 Allergy status to penicillin
CPT/HCPCS: 52356; 82365; 74018; C2625; C1894; C1769 ×2; J2250; J0330; J1100; J2710; J2405; J2001; J3010; J0744; J1885; J2371

== ENCOUNTER → 2023-06-18 | Outpatient (CLI) | payer OTHER ==
--- NOTE | 2023-06-18 11:29 | P.PN ---
Subjective DATE: 06/18/2023 FOLLOW UP VISIT. Patient with obstructive sleep apnea hypopnea syndrome return to sleep center for follow-up visit. Information from previous visit have been reviewed. Patient is using PAP equipment every night for the whole night, getting PAP supplies in time. The patient does not have significant problems with the mask, PAP unit and humidification. [place] sleepiness scale is 0. I checked information from PAP unit and explained it to the patient. PAP unit pressure maximal inspiratory pressure 24, minimal expiratory pressure 13, pressure-support 4, average pressure 23.2/19.3 cm H2O. Usage is 100 % for more then 4 hours, average 7.8 hours per night. Leak is in perfect range 0 l/m. Apnea Hypopnea Index is 6.6, which is close to the normal border, slightly increased comparing with previous visit when it was 4.4. MEDICATIONS:1. Metoprolol 100 mg once a day 2. Metformin 1000 mg once a day 3. Plavix 75 mg once a day 4. . Victoza 5. Rosuvastatin 20 mg once a day 6. Fenofibrate 145 mg once a day 7. Aspirin 81 mg once a day During physical exam: GENERAL: A pleasant patient without any distress. VITAL SIGNS: BP 119/72, HR 71, RR 18 , weight 230.0, temperature 98.2, oxygen saturation at room air 98 % . HEENT: PERRLA, EOMI.low position of soft palate, Mallapati 3 . NECK: Supple. No JVD. LUNGS: Clear to percussion and to auscultation. Good air exchange. No wheezing or rhonchi. HEART: S1, S2 regular. ABDOMEN: Soft and nontender.[] EXTREMITIES: No clubbing or cyanosis. LINE DEPARTMENT SUPERVISOR: Awake, alert, and oriented x3. No focal deficit. Impressions: 1. Obstructive sleep apnea-hypopnea syndrome. Patient demonstrated great compliance with treatment, benefiting from treatment. 2. Nephrolithiasis. 3. Diabetes mellitus. 4. History of stroke. 5. Hypertension. Plan: 1. Continue using PAP equipment every night for the whole night. 2. To change air filter at least 1-2 times per month. 3. PAP unit should stay lower then position of the head. 4. Advised patient to remove all remaining water from humidifier canister daily and make it dry after each usage. Refill canister with fresh distilled water before each usage. 5. Sleep hygiene with regular time in bed for at least 8 hours. 6. Precautions related to driving. No driving if feel any sleepiness. 7. I will maintain prescription for PAP supplies including mask, tube, filters. 8. Follow up visit in 6 months or earlier if patient has any problems. 9. Watching weight. Thank you very much for allowing me to participate in the management of your patient. Darrick Gauthier MD, PhD, FAASM. Diplomat of [place] [employer], Sleep Medicine Board by [place] [employer] Turbine Technician of [facility] [place]
== END ==
LOC: 3 N SLEEP 10:24
PROVIDERS: ATTEND Internal Medicine
DX: G47.33 Obstructive sleep apnea (adult) (pediatric) (principal); E11.9 Type 2 diabetes mellitus without complications; I10 Essential (primary) hypertension; N20.0 Calculus of kidney; Z79.84 Long term (current) use of oral hypoglycemic drugs; Z79.899 Other long term (current) drug therapy; Z86.73 Personal history of transient ischemic attack (TIA), and cerebral infarction without residual deficits; Z79.02 Long term (current) use of antithrombotics/antiplatelets; Z99.89 Dependence on other enabling machines and devices; Z79.82 Long term (current) use of aspirin; Z88.0 Allergy status to penicillin
CPT/HCPCS: 99212

== ENCOUNTER → 2023-06-30 | Outpatient (CLI) | payer OTHER ==
[2023-06-30 19:42] LABS: Appearance,Urine Cloudy (Clear); Bacteria,Urine None Seen (None Seen); Bilirubin,Urine Negative (Negative); Blood,Urine Large (Negative); Calcium Oxalate Crystals,Urine Present (None Seen); Color,Urine Dark Yellow (Yellow); Ketones,Urine Trace (Negative); Nitrite,Urine Negative (Negative); PH, Urine 5.5; Specific Gravity,Urine >1.035 (1.001-1.030)
== END | disposition home or self-care (01) ==
LOC: LABPAT 09:17
PROVIDERS: ATTEND Urology
DX: Z01.812 Encounter for preprocedural laboratory examination (principal); N20.0 Calculus of kidney; R31.29 Other microscopic hematuria
CPT/HCPCS: 36415; 81001; 87086

== ENCOUNTER → 2023-07-07 | Day surgery (SDC) | payer OTHER ==
[2023-06-30 14:45] VITALS: BMI 29.0
[~2023-07-07] MED LIST changes: +DEXAMETHASONE SOD PHOSPHATE 4 MG/ML 1 ML VIAL IV ONE; +GLYCOPYRROLATE 0.2 MG/ML 2 ML VIAL ONE; +HYDROmorphone 0.5 MG/0.5 ML SYRINGE IVP PRN; +KETOROLAC 15 MG/ML 1 ML VIAL ONE; +LACTATED RINGERS 1,000 ML IV ONE; +LACTATED RINGERS 1,000 ML IV SCH; +LIDOCAINE 1% INJ 10MG/ML (20 ML MDV) ONE; +MIDAZOLAM 2 MG/2 ML VIAL IV PRN; +MIDAZOLAM 2 MG/2 ML VIAL ONE; +NEOSTIGMINE 1 MG/ML 10 ML VIAL ONE; +ONDANSETRON 4 MG/2 ML VIAL IVP ONE; +PHENYLEPHRINE-0.9% NACL SYG 1,000 MCG/10 ML SYRINGE ONE; +PROPOFOL 10 MG/ML 20 ML VIAL IV ONE; +ROCURONIUM 10 MG/ML (5 ML VIAL) IV ONE; +SCOPOLAMINE 1 MG/72 HR PATCH TRANSDERM ONE; +SUCCINYLCHOLINE CHLORIDE 200 MG/10 ML VIAL IV ONE; +fentaNYL (PF) 50 MCG/ML 2 ML AMP ONE
--- NOTE | 2023-07-07 11:02 | XR ---
EXAMINATION TYPE: XR KUB DATE OF EXAM: 07/07/2023 COMPARISON: 06/09/2023 INDICATION: Renal stones right side TECHNIQUE: Single view abdomen supine view FINDINGS: There is a nonspecific bowel gas pattern. Psoas margins are normal. No organomegaly is present. Right ureteral stent is present. Previous right renal stones are not identified. Phleboliths appear t o be within the inferior right hemipelvis. IMPRESSION: 1. Previous right renal stones not identified. Right ureteral stent is present.
--- NOTE | 2023-07-07 11:06 | P.HPIHPCON ---
History of Present Illness H&P Date: 07/07/23 Chief Complaint: right renal stone is a 52-year-old male with history of a 1.5 cm right-sided renal pelvis stone causing hydronephrosis, additional lower pole right-sided renal stone greater than 1 cm. elected to proceed with staged ureteroscopy. Underwent stage I ureteroscopy on June 09. Presents today for stage II ureteroscopy. Aware the risk which includes but not limited to bleeding, infection, injury to ureter Consent for Procedure: I have explained the operation/procedure to the patient, including the risks, benefits, side effects, alternative therapies (including not receiving the proposed treatment or service), the likelihood of the patient achieving his/her goals, and potential recuperation problems for the procedure/sedation/analgesia, as well as any blood products, if indicated. I also explained to the patient the risks, benefits and side effects of the alternatives, as well as the risks related to not receiving the proposed procedure, care, treatment, or services. Past Medical History Past Medical History: Coronary Artery Disease (CAD), Heart Failure, CVA/TIA, Diabetes Mellitus, Hyperlipidemia, Hypertension, Myocardial Infarction ([place]), Sleep Apnea/CPAP/BIPAP Additional Past Medical History / Comment(s): KIDNEY STONE Last Myocardial Infarction Date:: ? History of Any Multi-Drug Resistant Organisms: None Reported Past Surgical History: Heart Catheterization With Stent Additional Past Surgical History / Comment(s): CARDIAC STENTS X4, LITHOTRIPSY FOR KIDNEY STONE Past Anesthesia/Blood Transfusion Reactions: No Reported Reaction Additional Past Anesthesia/Blood Transfusion Reaction / Comment(s): NO SURGICAL HX Date of Last Stent Placement:: 2019? Past Psychological History: No Psychological Hx Reported Smoking Status: Never smoker Past Alcohol Use History: None Reported Past Drug Use History: None Reported - Past Family History Mother Family Medical History: No Reported History Medications and Allergies Home Medications Medication Instructions Recorded Confirmed Type Aspirin [Adult Low Dose Aspirin EC] 81 mg PO DAILY 06/08/23 07/07/23 History Cholecalciferol (Vitamin D3) 2,000 unit PO HS 06/08/23 07/07/23 History [Vitamin D3 (50 Mcg = 2000 Iu) Chew Tab] Clopidogrel [Plavix] 75 mg PO DAILY 06/08/23 07/07/23 History Fenofibrate Nanocrystallized 145 mg PO DAILY 06/08/23 07/07/23 History [Fenofibrate] Liraglutide [Victoza 3-Teodoro] 1.8 mg SQ DAILY 06/08/23 07/07/23 History Magnesium Oxide [Mag-Ox] 400 mg PO HS 06/08/23 07/07/23 History Metoprolol Succinate (ER) [Toprol 100 mg PO DAILY 06/08/23 07/07/23 History Xl] Rosuvastatin Calcium 20 mg PO HS 06/08/23 07/07/23 History Sacubitril/Valsartan [Entresto 97 1 each PO BID 06/08/23 07/07/23 History mg-103 mg Tablet] metFORMIN HCL [Glucophage] 1,000 mg PO BID 06/08/23 07/07/23 History Tamsulosin [Flomax] 0.4 mg PO HS 06/30/23 07/07/23 History Allergies Allergy/AdvReac Type Severity Reaction Status Date / Time Penicillins Allergy Unknown Rash/Hives Verified 07/07/23 10:54 empagliflozin AdvReac causes low Verified 07/07/23 10:54 [From Jardiance] blood pressure Surgical - Exam - General no distress, no pain - Eyes normal ocular movement, no pale - ENT normal nares, normal mucosa - Respiratory normal expansion, normal respiratory effort - Abdomen Abdomen: soft, non tender - Psychiatric oriented to time, oriented to person, oriented to place Assessment and Plan Assessment: OR for right-sided ureteroscopy, holmium laser lithotripsy, stone basketing and stent removal
[2023-07-07 11:18] LABS: Glucose,Whole Blood 131 mg/dL (70-110)
[2023-07-07 13:06] VITALS: TEMP 97.5
--- NOTE | 2023-07-07 13:06 | P.OP ---
Date of Procedure: 07/07/23 Preoperative Diagnosis: Right-sided renal stone Postoperative Diagnosis: Same Procedure(s) Performed: Right-sided ureteroscopy, holmium laser lithotripsy, stone basketing and stent removal Implants: none Anesthesia: GAILA Surgeon: Ander Black Estimated Blood Loss (ml): 5 Pathology: other (Right-sided renal stones) Condition: stable Disposition: PACU Indications for Procedure: is a 52-year-old male with history of a 1.5 cm right-sided renal pelvis stone causing hydronephrosis, additional lower pole right-sided renal stone greater than 1 cm. elected to proceed with staged ureteroscopy. Underwent stage I ureteroscopy on June 09. Presents today for stage II ureteroscopy. Aware the risk which includes but not limited to bleeding, infection, injury to ureter Operative Findings: Multiple small stones throughout the renal pelvis and the lower pole Description of Procedure: Patient brought to the operating room, general anesthesia was induced. He was prepped and draped in sterile fashion and placed in dorsal lithotomy position. Cystoscopy fitted with a 21-[place]ip[place] sheath was inserted per urethra, cystoscopy was performed which showed no abnormality within the bladder. Attention was then carried to the right ureteral orifice, the stent was grasped and removed to the meatus. Next a sensor wire was advanced through the stent and the stent was removed with the wire in place. Next under fluoroscopy 1113 [place]ino access sheath was passed over the wire. Next the flexible ureteroscope was inserted through the access sheath, renoscopy was performed which showed multiple small stones throughout the kidney, stones were further dusted using the holmium laser, any sizable pieces were removed using the stone basket. Repeat renoscopy showed no sizable stones or injury to the kidney, on fluoroscopy no radiopaque densities were seen. Pullback ureteroscopy was performed which showed no injury to the ureter or any ureteral stones. The bladder was emptied at the end of the case. Patient tolerated procedure well was taken to recovery in stable condition
[2023-07-07 13:38] VITALS: RESP 14
[2023-07-07 14:06] LABS: Glucose,Whole Blood 160 mg/dL (70-110)
[2023-07-07 14:08] VITALS: BP 142/90; PULSE 85
--- NOTE | 2023-07-07 15:05 | FL ---
Fluoroscopy INDICATION: Pain FINDINGS: Fluoroscopy time: 12 seconds. Total dose area product (DAP) in uGy*m?, mGy*cm? (or similar): 1.1767 Images obtained: 3. IMPRESSION: 1. Documentation of fluoroscopy.
== END ==
LOC: OR 10:25
PROVIDERS: ATTEND Urology
DX: N20.0 Calculus of kidney (principal); I25.10 Atherosclerotic heart disease of native coronary artery without angina pectoris; I11.0 Hypertensive heart disease with heart failure; I50.9 Heart failure, unspecified; E78.5 Hyperlipidemia, unspecified; I25.2 Old myocardial infarction; G47.33 Obstructive sleep apnea (adult) (pediatric); Z86.73 Personal history of transient ischemic attack (TIA), and cerebral infarction without residual deficits; Z95.5 Presence of coronary angioplasty implant and graft; Z98.890 Other specified postprocedural states; Z79.899 Other long term (current) drug therapy
CPT/HCPCS: 82365; 74018; 52353; C1769 ×2; C1894; J2250; J0330; J1100; J2710; J2405; J2001; J3010; J0744; J1885; J2704; J2371

== ENCOUNTER → 2023-12-18 | Outpatient (CLI) | payer OTHER ==
[2023-12-18 14:32] LABS: HCT 41.6 % (39.6-50.0); HGB 13.9 g/dL (13.0-17.0); MCH 30.2 pg (27.0-32.0); MCHC 33.4 g/dL (32.0-37.0); MCV 90.4 FL (80.0-97.0); Mean Platelet Volume 10.5 FL (9.5-12.2); NRBC Per 100 WBC 0 X 10*3/uL (0.00-0.01); Platelet Count 291 X 10*3/uL (140-440); WBC 6.99 X 10*3/uL (4.50-10.00)
[2023-12-18 16:40] LABS: Appearance,Urine Clear (Clear); Bilirubin,Urine Negative (Negative); Blood,Urine Negative (Negative); Color,Urine Yellow (Yellow); Ketones,Urine Negative (Negative); Nitrite,Urine Negative (Negative); Specific Gravity,Urine 1.019 (1.001-1.030); Urobilinogen,Urine 0.2 E.U./DL
[2023-12-18 17:12] LABS: % Iron Saturation 13.38 (15.00-50.00); ALT 24 U/L (10-49); AST 20 U/L (14-35); Albumin 4.5 g/dL (3.8-4.9); Albumin/Globulin Ratio 1.96 Ratio (1.60-3.17); Alkaline Phosphatase 60 U/L (41-126); Calcium 10.2 mg/dL (8.7-10.3); Carbon Dioxide 22.4 mmol/L (21.6-31.8); Chloride 104 mmol/L (96-109); Chol/HDL Ratio 5.34 Ratio; Globulin 2.3 g/dL (1.6-3.3); Glucose 161 mg/dL (70-110); Iron 61 UG/DL (65-175); LDL Cholesterol,Calculated 37.3 mg/dL (0.0-131.0); Magnesium 1.8 mg/dL (1.5-2.4); Phosphorus 3.4 mg/dL (2.4-5.1); Potassium 4.5 mmol/L (3.5-5.5); Sodium 141 mmol/L (135-145); Total Bilirubin 0.4 mg/dL (0.3-1.2); Total Iron Binding Capacity 456 UG/DL (228-460); Total Protein 6.8 g/dL (6.2-8.2); Uric Acid 4.5 mg/dL (3.7-8.7)
[2023-12-18 17:49] LABS: Bacteria,Urine None Seen (None Seen); Calcium Oxalate Crystals,Urine Present (None Seen)
== END | disposition home or self-care (01) ==
LOC: LABWHC1 08:24
PROVIDERS: ATTEND Internal Medicine Cardiovascular Disease
DX: I12.9 Hypertensive chronic kidney disease with stage 1 through stage 4 chronic kidney disease, or unspecified chronic kidney disease (principal); I25.10 Atherosclerotic heart disease of native coronary artery without angina pectoris; N18.1 Chronic kidney disease, stage 1; E78.5 Hyperlipidemia, unspecified; Q21.12 Patent foramen ovale; Z86.73 Personal history of transient ischemic attack (TIA), and cerebral infarction without residual deficits; Z98.61 Coronary angioplasty status; Z86.79 Personal history of other diseases of the circulatory system
CPT/HCPCS: 36415; 80053; 80061; 81001; 82043; 82306; 82570; 82728; 83540; 83550; 83735; 83970; 84100; 84550; 85027

== ENCOUNTER → 2024-01-20 | Outpatient (CLI) | payer OTHER ==
[2024-01-20 10:35] VITALS: BP 127/78; PULSE 70; RESP 16; TEMP 98.3
--- NOTE | 2024-01-20 10:55 | P.PROGSL ---
Subjective DATE: 01/20/2024 FOLLOW UP VISIT. Patient with obstructive sleep apnea hypopnea syndrome return to sleep center for follow-up visit. Information from previous visit have been reviewed. Patient is using PAP equipment every night for the whole night, getting PAP supplies in time. The patient does not have significant problems with the mask, PAP unit and humidification. [place] sleepiness scale is 0. I checked information from PAP unit. PAP unit pressure maximal inspiratory pressure 24, minimal expiratory pressure 13, pressure support 4, average pressure 22.5 418.5 cm H2O. Usage is 100% and 90% for more then 4 hours, average 6.75 hours per night. Leak is 22.4 l/m, which is in acceptable range. Apnea Hypopnea Index is 4.4, which is normal, improved comparing with previous visit when it was increased to 6.6. MEDICATIONS: Please see below During physical exam: GENERAL: A pleasant patient without any distress. VITAL SIGNS: Please see below, weight 232 pounds, BMI 30.6. HEENT: PERRLA, EOMI.low position of soft palate, Mallapati 3 . NECK: Supple. No JVD. LUNGS: Clear to percussion and to auscultation. Good air exchange. No wheezing or rhonchi. HEART: S1, S2 regular. ABDOMEN: Soft and nontender.[] EXTREMITIES: No clubbing or cyanosis. BLOW MOLD OPERATOR: Awake, alert, and oriented x3. No focal deficit. Impressions: 1. Obstructive sleep apnea-hypopnea syndrome. Patient demonstrated great compliance with treatment, benefiting from treatment. 2. Mild obesity, BMI 30.6. 3. Diabetes mellitus. 4. Hypertension. 5. History of stroke. 6. History of nephrolithiasis. Plan: 1. Continue using PAP equipment every night for the whole night. 2. To change air filter at least 1-2 times per month. 3. PAP unit should stay lower then position of the head. 4. Advised patient to remove all remaining water from humidifier canister daily and make it dry after each usage. Refill canister with fresh distilled water before each usage. 5. Sleep hygiene with regular time in bed for at least 8 hours. 6. Precautions related to driving. No driving if feel any sleepiness. 7. I will maintain prescription for PAP supplies including mask, tube, filters. 8. Follow up visit in 6 months or earlier if patient has any problems. 9. Watching and losing weight. Thank you very much for allowing me to participate in the management of your patient. Darrick Gauthier MD, PhD, FAASM. Diplomat of [place] [employer], Sleep Medicine Board by [place] [employer] Airplane Pilot [employer] of [facility] [place] Objective - Vital Signs Vital Signs: Vital Signs Temp 98.3 F 01/20/24 10:34 Pulse 70 01/20/24 10:34 Resp 16 01/20/24 10:34 BP 127/78 01/20/24 10:34 Pulse Ox 96 01/20/24 10:34 FiO2 Intake & Output 01/19/24 01/20/24 01/20/24 18:59 06:59 18:59 Weight 105.233 kg Home Medications: Home Medications Medication Instructions Recorded Confirmed Type Aspirin [Adult Low Dose Aspirin EC] 81 mg PO DAILY 06/08/23 01/20/24 History Cholecalciferol (Vitamin D3) 2,000 unit PO HS 06/08/23 01/20/24 History [Vitamin D3 (50 Mcg = 2000 Iu) Chew Tab] Clopidogrel [Plavix] 75 mg PO DAILY 06/08/23 01/20/24 History Fenofibrate Nanocrystallized 145 mg PO DAILY 06/08/23 01/20/24 History [Fenofibrate] Liraglutide [Victoza 3-Teodoro] 1.8 mg SQ DAILY 06/08/23 01/20/24 History Magnesium Oxide [Mag-Ox] 400 mg PO HS 06/08/23 01/20/24 History Metoprolol Succinate (ER) [Toprol 100 mg PO DAILY 06/08/23 01/20/24 History Xl] Rosuvastatin Calcium 20 mg PO HS 06/08/23 01/20/24 History Sacubitril/Valsartan [Entresto 97 1 each PO BID 06/08/23 07/07/23 History mg-103 mg Tablet] metFORMIN HCL [Glucophage] 1,000 mg PO BID 06/08/23 01/20/24 History Tamsulosin [Flomax] 0.4 mg PO HS 06/30/23 07/07/23 History Ketorolac [Toradol] 10 mg PO Q6HR PRN #10 tab 07/07/23 Rx
== END ==
LOC: 3 N SLEEP 10:21
PROVIDERS: ATTEND Internal Medicine
DX: G47.33 Obstructive sleep apnea (adult) (pediatric) (principal); E66.9 Obesity, unspecified; E11.9 Type 2 diabetes mellitus without complications; I10 Essential (primary) hypertension; Z86.73 Personal history of transient ischemic attack (TIA), and cerebral infarction without residual deficits; Z87.442 Personal history of urinary calculi; Z68.30 Body mass index [BMI] 30.0-30.9, adult; Z99.89 Dependence on other enabling machines and devices; Z88.0 Allergy status to penicillin; Z88.8 Allergy status to other drugs, medicaments and biological substances; Z79.84 Long term (current) use of oral hypoglycemic drugs; Z79.899 Other long term (current) drug therapy; Z79.02 Long term (current) use of antithrombotics/antiplatelets
CPT/HCPCS: 99212

== ENCOUNTER → 2024-03-23 | Outpatient (CLI) | payer OTHER | END | disposition home or self-care (01) | LOC: LABWHC1 09:30 | PROVIDERS: ATTEND Internal Medicine Nephrology | DX: N18.1 Chronic kidney disease, stage 1 (principal); D64.9 Anemia, unspecified; N39.0 Urinary tract infection, site not specified; R80.9 Proteinuria, unspecified; M10.9 Gout, unspecified; E55.9 Vitamin D deficiency, unspecified; N25.81 Secondary hyperparathyroidism of renal origin | CPT/HCPCS: 36415; 80053; 82043; 82306; 82570; 82728; 83540; 83550; 83735; 83970; 84100; 84550; 85027 ==

== ENCOUNTER → 2024-08-17 | Outpatient (CLI) | payer OTHER ==
[2024-08-17 15:08] LABS: Basophils # (A) 0.07 X 10*3/uL (0.00-0.10); Basophils % (A) 0.9 %; Eosinophils # (A) 0.15 X 10*3/uL (0.04-0.35); HCT 44.4 % (39.6-50.0); HGB 14.3 g/dL (13.0-17.0); Lymphocytes # (A) 1.97 X 10*3/uL (0.90-5.00); Lymphocytes % (A) 26.1 %; MCH 29.9 pg (27.0-32.0); MCHC 32.2 g/dL (32.0-37.0); MCV 92.9 FL (80.0-97.0); Mean Platelet Volume 10.5 FL (9.5-12.2); Monocytes % (A) 7.9 %; NRBC Per 100 WBC 0 X 10*3/uL (0.00-0.01); Neutrophils # (A) 4.74 X 10*3/uL (1.80-7.70); Neutrophils % (A) 62.7 %; Platelet Count 306 X 10*3/uL (140-440); RBC 4.78 X 10*6/uL (4.40-5.60); RDW 12.7 % (11.5-14.5); WBC 7.56 X 10*3/uL (4.50-10.00)
[2024-08-17 15:42] LABS: Appearance,Urine Turbid (Clear); Bilirubin,Urine Negative (Negative); Blood,Urine Moderate (Negative); Color,Urine Yellow (Yellow); Ketones,Urine Negative (Negative); Nitrite,Urine Negative (Negative); PH, Urine 5.5; Specific Gravity,Urine 1.024 (1.001-1.030)
[2024-08-17 16:04] LABS: Bacteria,Urine None Seen (None Seen); Calcium Oxalate Crystals,Urine Present (None Seen)
[2024-08-17 16:40] LABS: % Iron Saturation 18.06 (15.00-50.00); ALT 27 U/L (10-49); AST 21 U/L (14-35); Albumin 4.5 g/dL (3.8-4.9); Albumin/Globulin Ratio 1.96 Ratio (1.60-3.17); Alkaline Phosphatase 57 U/L (41-126); BUN/Creat Ratio 15.08 Ratio (12.00-20.00); Blood Urea Nitrogen 19.6 mg/dL (9.0-27.0); Calcium 9.7 mg/dL (8.7-10.3); Carbon Dioxide 25.2 mmol/L (21.6-31.8); Chloride 104 mmol/L (96-109); Globulin 2.3 g/dL (1.6-3.3); Glucose 208 mg/dL (70-110); Iron 82 UG/DL (65-175); Magnesium 1.8 mg/dL (1.5-2.4); Phosphorus 3.6 mg/dL (2.4-5.1); Potassium 4.7 mmol/L (3.5-5.5); Sodium 143 mmol/L (135-145); Total Bilirubin 0.6 mg/dL (0.3-1.2); Total Iron Binding Capacity 454 UG/DL (228-460); Total Protein 6.8 g/dL (6.2-8.2); Uric Acid 4.9 mg/dL (3.7-8.7)
== END | disposition home or self-care (01) ==
LOC: LABWHC1 08:31
PROVIDERS: ATTEND Nurse Practitioner Adult Health
DX: E55.9 Vitamin D deficiency, unspecified (principal); D64.9 Anemia, unspecified; N39.0 Urinary tract infection, site not specified; N25.81 Secondary hyperparathyroidism of renal origin; N18.1 Chronic kidney disease, stage 1; M10.9 Gout, unspecified
CPT/HCPCS: 36415; 80053; 81001; 82043; 82306; 82570; 82728; 83540; 83550; 83735; 83970; 84100; 84550; 85025

== ENCOUNTER → 2024-12-15 | Outpatient (CLI) | payer OTHER ==
[2024-12-15 14:50] LABS: Basophils # (A) 0.07 X 10*3/uL (0.00-0.10); Basophils % (A) 1.1 %; Eosinophils # (A) 0.15 X 10*3/uL (0.04-0.35); Eosinophils % (A) 2.4 %; HCT 41.4 % (39.6-50.0); HGB 13.2 g/dL (13.0-17.0); Lymphocytes # (A) 1.55 X 10*3/uL (0.90-5.00); Lymphocytes % (A) 24.7 %; MCH 29.5 pg (27.0-32.0); MCHC 31.9 g/dL (32.0-37.0); MCV 92.6 FL (80.0-97.0); Mean Platelet Volume 10.9 FL (9.5-12.2); Monocytes # (A) 0.54 X 10*3/uL (0.20-1.00); Monocytes % (A) 8.6 %; NRBC Per 100 WBC 0 X 10*3/uL (0.00-0.01); Neutrophils # (A) 3.94 X 10*3/uL (1.80-7.70); Neutrophils % (A) 62.9 %; Platelet Count 288 X 10*3/uL (140-440); RBC 4.47 X 10*6/uL (4.40-5.60); RDW 12.5 % (11.5-14.5); WBC 6.27 X 10*3/uL (4.50-10.00)
[2024-12-15 15:43] LABS: Chol/HDL Ratio 4.93 Ratio
[2024-12-15 15:44] LABS: % Iron Saturation 13.33 (15.00-50.00); ALT 22 U/L (10-49); AST 22 U/L (14-35); Albumin 4.2 g/dL (3.8-4.9); Albumin/Globulin Ratio 1.83 Ratio (1.60-3.17); Alkaline Phosphatase 60 U/L (41-126); BUN/Creat Ratio 12.67 Ratio (12.00-20.00); Blood Urea Nitrogen 15.2 mg/dL (9.0-27.0); Calcium 9.3 mg/dL (8.7-10.3); Carbon Dioxide 23.3 mmol/L (21.6-31.8); Chloride 105 mmol/L (96-109); Globulin 2.3 g/dL (1.6-3.3); Glucose 233 mg/dL (70-110); Iron 56 UG/DL (65-175); LDL Cholesterol,Calculated 52.7 mg/dL (0.0-131.0); Magnesium 1.6 mg/dL (1.5-2.4); Phosphorus 2.4 mg/dL (2.4-5.1); Potassium 4.5 mmol/L (3.5-5.5); Sodium 140 mmol/L (135-145); Total Bilirubin 0.4 mg/dL (0.3-1.2); Total Iron Binding Capacity 420 UG/DL (228-460); Total Protein 6.5 g/dL (6.2-8.2); Uric Acid 3.8 mg/dL (3.7-8.7)
[2024-12-15 16:36] LABS: Appearance,Urine Turbid (Clear); Bilirubin,Urine Negative (Negative); Blood,Urine Moderate (Negative); Color,Urine Yellow (Yellow); Ketones,Urine Trace (Negative); Nitrite,Urine Negative (Negative); PH, Urine 5.5; Specific Gravity,Urine 1.027 (1.001-1.030); Urobilinogen,Urine 0.2 E.U./DL
[2024-12-15 17:02] LABS: Bacteria,Urine None Seen (None Seen); Calcium Oxalate Crystals,Urine Present (None Seen)
== END | disposition home or self-care (01) ==
LOC: LABWHC1 09:02
PROVIDERS: ATTEND Internal Medicine
DX: E11.22 Type 2 diabetes mellitus with diabetic chronic kidney disease (principal); N18.1 Chronic kidney disease, stage 1; D63.1 Anemia in chronic kidney disease; N39.0 Urinary tract infection, site not specified; E55.9 Vitamin D deficiency, unspecified; N25.81 Secondary hyperparathyroidism of renal origin; M10.9 Gout, unspecified; E78.5 Hyperlipidemia, unspecified
CPT/HCPCS: 36415; 80053; 80061; 81001; 82043; 82306; 82570; 82728; 83540; 83550; 83735; 83970; 84100; 84550; 85025